=== PATIENT | female | born 1985 | race Hispanic/Latino ===

== ENCOUNTER 2022-08-28 12:01 | Emergency (ER) | payer OTHER ==
[~2022-08-28] VITALS: Ht 154.9 cm; Wt 103.4 kg
[2022-08-28 12:03] VITALS: BP 138/85
[2022-08-28] MEDS ORDERED: CLIN-141 PO (13:21)
== END 2022-08-28 13:55 | disposition home or self-care (01) ==
LOC: EDH 12:01
DX: K04.7 Periapical abscess without sinus (principal); Z90.49 Acquired absence of other specified parts of digestive tract